=== PATIENT | male | born 1945 | race Caucasian/White ===

== ENCOUNTER 2016-12-22 15:43 | Inpatient (IN) | payer MEDICARE ==
[2016-12-22] MEDS ORDERED: DILTIAZEM 25 MG/5 ML VIAL IV ONE (15:59)
[2016-12-22 16:06] LABS: AUTOMATED BASOPHIL 0.9 % (0-2); AUTOMATED EOSINOPHIL 0.3 % (0-5); AUTOMATED LYMPH 18.3 % (17-44); AUTOMATED MONOCYTE 6.8 % (3-10); AUTOMATED NEUTROPHIL 73.7 % (45-76); MPV 8.9 fL (7.4-10.4)
[2016-12-22] MEDS ORDERED: Nitroglycerin D5W 50,000 MCG/250 ML IVBOT IV ONE (16:17)
--- NOTE | 2016-12-22 16:19 | EDPRACDOC ---
- General Information Stated Complaint: SYNCOPAL Time Seen by Provider: 12/22/16 15:48 Information Source: Patient, Nursing Agency Manager Mode Of Arrival: Ambulance Home Medications: Home Medications Bupropion HCl [Bupropion Xl] 150 mg PO BID 10/24/14 Cilostazol [Pletal] 100 mg PO BID 10/24/14 Losartan Potassium [Cozaar] 50 mg PO BID 10/24/14 MetFORMIN (Immediate Release) [GLUCOPHAGE Immed Release] 500 mg PO QHS 10/24/14 Metoprolol Succinate (XL) [Toprol Xl] 50 mg PO BID 12/22/16 Amlodipine [Norvasc] 10 mg PO HS #30 tab 12/25/16 Apixaban [Eliquis] 5 mg PO BID #60 tablet 12/25/16 Atorvastatin Calcium [Lipitor] 40 mg PO DAILY@1800 #30 tablet 12/25/16 Dronedarone Hydrochloride [Multaq] 400 mg PO BID #60 tablet 12/25/16 HydrALAZINE (Cardiovascular) [Apresoline] 25 mg PO TID #90 tablet 12/25/16 POTASSIUM CHLORIDE Tablet [K-DUR 20 mEq Tablet*] 20 meq PO TIDWM #30 tab.er.prt 12/25/16 Allergies/Adverse Reactions: Allergies Allergy/AdvReac Type Severity Reaction Status Date / Time NIELS Inhibitors Allergy Cough Verified 10/10/16 23:22 - History of Present Illness Onset: TODAY HPI: AT WORK, HAD SUDDEN ONSET OF LIGHTHEADEDNESS FOLLOWED BY SYNCOPE. SYNCOPE WAS ASSOCIATED WITH SEVERAL EPISODES OF MYOCLONIC JERKS. UNCONSCIOUS FOR A BRIEF PERIOD TIME FOR RETURNING TO NORMAL LEVEL CONSCIOUSNESS. WITH EMS TRANSPORT PATIENT INITIALLY HYPERTENSIVE. HE THEN HAD SEVERAL EPISODES WIDE COMPLEX TACHYCARDIA ASSOCIATED WITH THE LOSS OF CONSCIOUSNESS SOME MYOCLONIC JERKS. Duration: Minutes Presyncopal phase:: Reports: Palpitations Syncopal phase:: Reports: Seizure activity Postsyncopal phase:: Reports: Rapid recovery History of: Denies: Atrial Fibrillation, Aneurysm, Syncope, Seizures, Hypoglycemia Associated Signs/Symptoms: Reports: None ED Past Medical History - History Reviewed Yes Nurses notes reviewed and agree except as marked Information Unobtainable: Yes Unable to obtain information due to patient condition - Patient Medical History Cardiac History: Reports: Hypertension, Hypercholesterolemia Respiratory History: Reports: COPD, Emphysema Psychological History: Denies: Depression Systemic History: Reports: Diabetes Surgical History: Reports: Tonsillectomy/Adnoidectomy - Social Medical History Smoking Status: Heavy tobacco smoker (5 or more cigarettes/day or daily pipe/ cigar) EDM Review of Systems - Review of Systems ROS Negative Except as Marked: Yes All systems reviewed and were negative except as marked - Physical Exam Constitutional: Other (THIN MALE, PALE AND DIAPHORETIC) Oriented to: Person Last recorded Vital Signs: Last Vital Signs Temp Pulse 190 H 12/22/16 16:01 Resp 20 12/22/16 16:01 BP 106/81 12/22/16 16:01 Pulse Ox 98 12/22/16 16:01 Oxygen Pulse Oxygen Saturation 98 O2 Device Room Air Oxygen Flow Rate Fraction of Inspired Oxygen ( FIO2) - HEENT Head: Normal Oropharynx: Normal Neck: Normal. negative: Edema - Respiratory/Cardiovascular Respiratory: Normal - CTA Cardiovascular: Tachycardia, Irregular - GI Auscultation: Normal Palpation: Normal Tenderness: Non tender - Musculoskeletal Extremities: Cyanosis - Integumentary Skin: Cool, Clammy - Neurologic Memory Impaired: Unable to Test Motor Function: Other (MOVES ALL EXTREMITIES) Mood Description: Flat Thought: negative: Coherent - Results 12/25/16 04:30 12/25/16 04:30 WBC 9.4 xk/uL (3.8-10.8) 12/22/16 15:55 RBC 5.01 xM/uL (4.70-6.10) 12/22/16 15:55 Hgb 15.3 g/dL (14.0-18.0) 12/22/16 15:55 Hct 45.0 % (42-52) 12/22/16 15:55 MCV 90 fL (80-94) 12/22/16 15:55 MCH 30.6 pg (27-32) 12/22/16 15:55 MCHC 34.0 g/dl (33-36) 12/22/16 15:55 RDW 14.9 % (11.5-14.5) H 12/22/16 15:55 Plt Count 158 xk/uL (130-400) 12/22/16 15:55 MPV 8.9 fL (7.4-10.4) 12/22/16 15:55 Neut % (Auto) 73.7 % (45-76) 12/22/16 15:55 Lymph % (Auto) 18.3 % (17-44) 12/22/16 15:55 [place] % (Auto) 6.8 % (3-10) 12/22/16 15:55 Eos % (Auto) 0.3 % (0-5) 12/22/16 15:55 Baso % (Auto) 0.9 % (0-2) 12/22/16 15:55 Absolute Neuts (auto) 6.86 xk/uL (1.7-8.2) 12/22/16 15:55 Absolute Lymphs (auto) 1.69 xk/uL (0.65-4.75) 12/22/16 15:55 Lab Results 12/22/16 15:55 WBC 9.4 RBC 5.01 Hgb 15.3 Hct 45.0 MCV 90 MCH 30.6 MCHC 34.0 RDW 14.9 H Plt Count 158 MPV 8.9 Neut % (Auto) 73.7 Lymph % (Auto) 18.3 [place] % (Auto) 6.8 Eos % (Auto) 0.3 Baso % (Auto) 0.9 Absolute Neuts (auto) 6.86 Absolute Lymphs (auto) 1.69 - EKG EKG #1 EKG Time: 15:56 -: Yes EKG interpreted by me Rate: bpm: 194 Rhythm: Aflutter Block: None Hypertrophy: None ST: Ischemia, Nonsp Comparison: 10/24/14 (RATE AND RYTHYM CHANGE) EKG #2 EKG Time: 16:05 -: Yes EKG interpreted by me Rate: bpm: 81 [place]: Normal Rhythm: NSR, Afib Block: None Hypertrophy: None ST: Ischemia, Nonsp - Additional Information PATIENT PRESENTS TO THE EMERGENCY DEPARTMENT WITH TACHYCARDIA. EMS STRIPS DEMONSTRATE WIDE COMPLEX TACHYCARDIA. UPON ARRIVAL TO THE EMERGENCY DEPARTMENT PATIENT HAD A SYNCOPAL EPISODE ASSOCIATED MYOCLONIC JERKS. LASTED LESS THAN 1 MINUTE. NO CPR IN INITIATED. EKG DEMONSTRATED NARROW COMPLEX TACHYCARDIA. PATIENT WAS TREATED WITH DILTIAZEM IV BOLUS RATE WAS CONTROLLED. MENTAL STATUS HAS IMPROVED. HE IS NOW HYPERTENSIVE AND WILL BE STARTED ON NITROGLYCERIN DRIP FOR BLOOD PRESSURE CONTROL. ED Critical Care Note - Critical Care Note Total Time (mins): 35 Comments: Due to the presence of and / or the risk of deterioration, my attendance to this patient required critical care time, including assessment/reassessment, documentation, ordering and interpreting ancillary studies, discussion with ED staff and consultants,patient and family, and excludes time spent on separately billable procedures. - Departure Disposition: Admit IP To This Hospital Condition: Improved Final Diagnosis: Hypertensive emergency, Atrial flutter with rapid ventricular response, Syncope and collapse Decision to Admit Time: 18:06 Decision to admit date: 12/22/16 Decision to admit: from ED - Physician Consulted Hospitalist Time Called: 18:00 Provider Called: Juan Antonio Baum Time Match Maker Returned Call: 18:06
[2016-12-22 16:25] LABS: PARTIAL THROMB. TIME 25.9 SEC (22-35); PT-INR 1.1
[2016-12-22 16:30] LABS: BLOOD UREA NITROGEN 23 MG/DL (9-20); CALC CORRECTED 9.1 MG/DL (8.4-10.2); CALCULATED OSMOLALITY 283 MOs/Kg (270-290); CHLORIDE 105 mEq/L (98-107); GLUCOSE 141 mg/dL (70-99); SODIUM LEVEL 144 mEq/L (137-146); TOTAL PROTEIN 6.8 G/DL (6.3-8.2)
[2016-12-22] MEDS: Nitroglycerin D5W 50,000 MCG/250 ML IVBOT IV SCH (17:01)
--- NOTE | 2016-12-22 17:04 | DIRPT ---
CLINICAL DATA: Syncopal episode EXAM: PORTABLE CHEST 1 VIEW COMPARISON: Chest x-rays dated 10/24/2014 and 09/30/2011. FINDINGS: Heart size is normal. Overall cardiomediastinal silhouette is stable in size and configuration. Lungs are hyperexpanded suggesting COPD. Suspect associated chronic bronchitic changes centrally. Streaky opacities at the right lung base are slightly more prominent on today's study but remain most likely chronic scarring or atelectasis. No pleural effusion seen. No pneumothorax seen. Osseous and soft tissue structures about the chest are unremarkable. IMPRESSION: No convincing evidence of an acute intrathoracic abnormality. Lungs are hyperexpanded suggesting COPD. Suspect associated chronic bronchitic changes centrally. Probable chronic scarring/atelectasis at the lung bases, right greater than left, much less likely pneumonia if afebrile. Electronically Signed By: Humphrey Hunyh M.D. On: 12/22/2016 17:01
[2016-12-22] MEDS ORDERED: ACETAMINOPHEN 325 MG/TAB TABLET PO PRN (18:30)
[2016-12-22] MEDS ORDERED: GLUCAGON 1 MG VIAL SQ PRN (18:30)
[2016-12-22] MEDS ORDERED: Albuterol/Ipratropium Neb 3 ML NEB NEB PRN (18:30)
[2016-12-22] MEDS ORDERED: ONDANSETRON HCL 4 MG/2 ML VIAL IV PRN (18:30)
[2016-12-22] MEDS ORDERED: DEXTROSE 25 GM/50 ML PFS IV PRN (18:30)
[2016-12-22] MEDS ORDERED: GLUCOSE (ORAL GEL) 15 GM TUBE PO PRN (18:30)
--- NOTE | 2016-12-22 19:05 | HISTPHYS ---
- Chief Complaint Syncope - History of Present Illness This is a pleasant 71-year-old male who is highly functioning, has a history of diabetes and coronary artery disease who was being admitted to the [facility] due to new onset atrial fibrillation with syncope. The patient was in his usual state of health until this afternoon, when he had sudden onset of dizziness while ambulating, and had convulsive syncope that was witnessed. No bowel or bladder incontinence, no tongue biting. He denies any recent fevers, chills, nausea, vomiting, chest pain or shortness of breath. No sick contacts, no new medications. He has been compliant with his medications, but did not take his afternoon blood pressure medications since he was brought to the emergency department by EMS. Here in the emergency department, he was found to be in atrial flutter, with some hypotension. He was given bolus dose of diltiazem and started on drip, and he has been hypertensive since with rates controlled. He was also started on a nitrate drip to control his blood pressure. The hospitalist group was consulted for evaluation and management of the patient's new onset atrial fibrillation. - Medical History Cardiac History: Reports: Hypertension, Hypercholesterolemia. Denies: Atrial Fibrillation, Syncope Respiratory History: Reports: COPD, Emphysema Systemic History: Reports: Diabetes Neurological History: Denies: Seizures Psychological History: Denies: Depression - Surgical History Reports: Tonsillectomy/Adnoidectomy - Medictions/Allergies Allergies NIELS Inhibitors Allergy (Verified 10/10/16 23:22) Cough Home Medications Bupropion HCl [Bupropion Xl] 150 mg PO BID 10/24/14 Cilostazol [Pletal] 100 mg PO BID 10/24/14 Losartan Potassium [Cozaar] 50 mg PO BID 10/24/14 MetFORMIN (Immediate Release) [GLUCOPHAGE Immed Release] 500 mg PO DAILY Simvastatin [Zocor] 40 mg PO QHS 10/24/14 Metoprolol Succinate (XL) [Toprol Xl] 50 mg PO BID 12/22/16 - Social History Smoking Status: Heavy tobacco smoker (5 or more cigarettes/day or daily pipe/ cigar) - Review of Systems Yes All systems reviewed and were negative except as marked (And as mentioned in the history of present illness above.) - Physical Exam Vital Signs: Initial Vitals Temperature 98.3 F 12/22/16 15:50 Pulse Rate 55 L 12/22/16 15:50 Respiratory Rate 20 12/22/16 15:50 Blood Pressure 78/57 L 12/22/16 15:50 Pulse Oxygen Saturation 99 12/22/16 15:50 Constitutional: No apparent distress, Alert Oriented to: Time, Person, Place - HEENT Head: Normal (normocephalic,atraumatic, trachea midline) Eye: Normal (EOMI, Sclera white) Oropharynx: Normal (moist) Nose: No Symptoms Reported (without discharge or bleeding) Respiratory: Normal - CTA (Clear to auscultation bilaterally, no wheezing,rales or rhonchi. No use of accessory muscles) Cardiovascular: Normal (RRR, no murmurs, rubs or gallops) - GI Palpation: Normal (soft, non distended and nontender) - Musculoskeletal Extremities: Normal (normal tone, no cyanosis or edema) - Integumentary Skin: Normal (no rashes or lesions) - Neurologic Cranial Nerve: Normal (CN II-XII intact) Mood Description: Normal (Fully oriented and appropiate affect) - Focused CV Perfusion Exam Vital Signs: Last Vital Signs Temp 98.5 F 12/22/16 18:47 Pulse 69 12/22/16 18:51 Resp 18 12/22/16 18:51 BP 196/101 H 12/22/16 18:51 Pulse Ox 97 12/22/16 18:51 - Lab Results Laboratory Tests 12/22/16 12/22/16 12/22/16 15:55 15:55 15:55 WBC 9.4 Hgb 15.3 Hct 45.0 Plt Count 158 INR 1.1 Potassium 3.6 BUN 23 H Creatinine 1.20 Magnesium 1.80 AST 24 ALT 23 Troponin I 0.08 - Diagnostic Findings Chest x-ray was obtained in the emergency department, no acute changes, some evidence of chronic COPD. - Assessment (1) Atrial flutter with rapid ventricular response I48.92 - UNSPECIFIED ATRIAL FLUTTER Acute Patient denies a prior history of this. He will be admitted to the PCU with telemetry. He has already been started on diltiazem drip, and Cardiology will be formally consulted in the morning. He has a Fer score of 3, so I will start him on Eliquis anticoagulation tonight. I have also ordered a 2D echo. He sees Dr. Adler as an outpatient. (2) Hypertensive emergency I16.1 - HYPERTENSIVE EMERGENCY Acute Started on nitrate drip, will also continue the patient's home antihypertensive medications. (3) Syncope and collapse R55 - SYNCOPE AND COLLAPSE Acute Due to new onset atrial fibrillation. (4) DMII (diabetes mellitus, type 2) E11.9 - TYPE 2 DIABETES MELLITUS WITHOUT COMPLICATIONS Acute Continue home metformin, diabetic diet when eating and check hemoglobin A1c and urine microalbumin. Diabetic teaching has also been ordered. (5) CAD (coronary artery disease) I25.10 - ATHSCL HEART DISEASE OF [place] CORONARY ARTERY W/O ANG PCTRS Acute Patient tells me that he had cardiac catheterization a couple of years ago at [place], with 10% blockage found and no intervention. Plan was for medical therapy. Case Care Discussed with: Patient, Family, Nursing Staff Total Time: 42
[2016-12-22] MEDS ORDERED: Vaccine Screening Complete SCH (20:00)
[2016-12-22] MEDS ORDERED: Cilostazol 100 MG TAB PO SCH (21:00)
[2016-12-22] MEDS ORDERED: SIMVASTATIN 40 MG TAB PO SCH (21:00)
[2016-12-22] MEDS: BuPROPion 150 MG XL TAB PO SCH (21:22)
[2016-12-22] MEDS: APIXABAN 5 MG TABLET PO SCH (21:22)
[2016-12-22] MEDS: METOPROLOL (TOPROL-XL) 50 MG TAB PO SCH (21:22)
[2016-12-22] MEDS: REGULAR INSULIN 100 UNITS/ML - 3 ML VIAL SQ SCH (21:22)
[2016-12-22] MEDS: LOSARTAN POTASSIUM 50 MG TAB PO SCH (21:22)
[2016-12-23 04:22] LABS: MPV 9.3 fL (7.4-10.4)
[2016-12-23 04:41] LABS: BLOOD UREA NITROGEN 30 MG/DL (9-20); CALCIUM 8.8 MG/DL (8.4-10.2); CALCULATED OSMOLALITY 281 MOs/Kg (270-290); CHLORIDE 106 mEq/L (98-107); GLUCOSE 90 mg/dL (70-99); SODIUM LEVEL 143 mEq/L (137-146)
[2016-12-23] MEDS: REGULAR INSULIN 100 UNITS/ML - 3 ML VIAL SQ SCH ×4 (06:03→22:15)
[2016-12-23] MEDS: APIXABAN 5 MG TABLET PO SCH ×2 (08:24→20:18)
[2016-12-23] MEDS: MetFORMIN 500 MG IMMED RELEASE TAB PO SCH (08:24)
[2016-12-23] MEDS: LOSARTAN POTASSIUM 50 MG TAB PO SCH (08:25)
[2016-12-23] MEDS: METOPROLOL (TOPROL-XL) 50 MG TAB PO SCH ×2 (08:25→20:18)
[2016-12-23] MEDS: BuPROPion 150 MG XL TAB PO SCH ×2 (08:25→20:18)
[2016-12-23] MEDS: Nitroglycerin D5W 50,000 MCG/250 ML IVBOT IV SCH ×2 (09:51→09:56)
--- NOTE | 2016-12-23 10:17 | PCM.CARDCO ---
Consultation Date: 12/23/16 Requesting Physician: Christin Reilly [employer]: Femi Jama Consult Reason: Syncope, Other (Paroxysmal atrial fibrillation) - History of Present Illness Is a patient seen in my practice previously with a history of hypertension hyperlipidemia right hemisphere TIA type 2 diabetes angina pectoris and carotid atherosclerosis with for previous right carotid endarterectomy. He underwent coronary arteriography which showed mild nonobstructive CAD in 2013. He was last seen November 2015 at that time was doing well and had no documentation of atrial arrhythmias. Other problems include peripheral vascular disease and previous syncope. Additionally tells me that he thinks he had a stroke at the time his CEA and he has no recall of events yesterday. Today no complaints of headache shortness of breath chest pain or palpitation. Relates he has routine doctor's visits and he has never had a problem with his blood pressure out of control. He has no history of seizure disorder. He was aware is in atrial fibrillation tells me he has had episodes like this in the past although he has never been diagnosed. Chief Complaint: Syncope - Past Medical and Surgical History Cardiac History: Reports: Hypertension, Cardiac Catheterization (Mild nonobstructive CAD a coronary arteriography 11/06/2014), Hypercholesterolemia. Denies: Atrial Fibrillation, Syncope Respiratory History: Reports: COPD, Emphysema GI/ History: Reports: Gastroesophageal Reflux Systemic History: Reports: Diabetes. Denies: Cancer Psychological History: Denies: Depression Neurological History: Reports: Cerebrovascular Accident (2009). Denies: Seizures Past Surgical History: Reports: Cardiac Catheterization, Hernia Surgery (2004), Tonsillectomy/Adnoidectomy, Other (Carotid endarterectomy right side 2008) Allergies NIELS Inhibitors Allergy (Verified 10/10/16 23:22) Cough Home Medications Bupropion HCl [Bupropion Xl] 150 mg PO BID 10/24/14 Cilostazol [Pletal] 100 mg PO BID 10/24/14 Losartan Potassium [Cozaar] 50 mg PO BID 10/24/14 MetFORMIN (Immediate Release) [GLUCOPHAGE Immed Release] 500 mg PO QHS 10/24/14 Simvastatin [Zocor] 40 mg PO QHS 10/24/14 Metoprolol Succinate (XL) [Toprol Xl] 50 mg PO BID 12/22/16 - Social History Travel Outside of [place] in the Last 3 Months?: No Smoking Status: Heavy tobacco smoker (5 or more cigarettes/day or daily pipe/ cigar) - Family History Reports: Cancer (Mother in her 40s). Denies: Hypertension, Diabetes, Stroke, Cardiac Disorders - Review of Systems Yes Limited due to inability of parents to provide information (He has no recall of the events from yesterday) - Cardiovascular Palpitations - Physical Exam Constitutional: No apparent distress, Other (He has facial asymmetry is speech is slurred and he has a very poor historian) Oriented to: Time, Person, Place Exam: Last Vital Signs Temp 97.4 F L 12/23/16 08:04 Pulse 61 12/23/16 08:04 Resp 16 12/23/16 08:04 BP 139/82 12/23/16 08:04 Pulse Ox 98 12/23/16 08:04 Intake & Output 12/22/16 12/23/16 12/23/16 23:59 07:59 15:59 Intake Total 15 Output Total 175 Balance 15 -175 Patient's weight 138 lb 12.8 oz - HEENT Head: Normal (He has a soft right carotid bruit systolic no bruit on the left no neck vein distention or thyromegaly) Eye: Normal (EOMI, Sclera white) Oropharynx: Normal (moist) Nose: No Symptoms Reported (without discharge or bleeding) - Respiratory/Cardiovascular Respiratory: Normal - CTA (Clear to auscultation bilaterally, no wheezing,rales or rhonchi. No use of accessory muscles) Cardiovascular: Systolic murmur (1-2 of 6 systolic ejection murmur located the aortic area). negative: Normal (S1-S2 was normal), Gallop/S3, Gallop/S4 - GI Palpation: Normal (soft, non distended and nontender) Tenderness: Non tender - Musculoskeletal Back: Normal Extremities: Normal (normal tone, no cyanosis or edema), Femoral Pulse, Pedal Pulse. negative: Calf Tenderness, Clubbing, Cyanosis, Edema, Pedal Edema, Radial Pulse - Integumentary Skin: Normal (no rashes or lesions). negative: Diaphoretic, Pale, Mottling, Jaundice - Neurologic Mood Description: Normal (Fully oriented and appropiate affect) - Lab Results Selected Entries 12/22/16 15:50 Blood Pressure 78/57 L Laboratory Tests 12/22/16 12/22/16 12/22/16 15:55 20:00 23:15 WBC Hgb Potassium Creatinine Estimated GFR (MDRD) Troponin I 0.08 0.11 0.11 12/23/16 12/23/16 03:40 03:40 WBC 8.3 Hgb 12.7 L D Potassium 3.9 Creatinine 1.30 H Estimated GFR (MDRD) 54 L Troponin I He has converted to sinus rhythm Echocardiogram shows normal ejection fraction moderate LVH normal left atrial size - Assessment/Plan (1) Atrial fibrillation and flutter I48.91 - UNSPECIFIED ATRIAL FIBRILLATION; I48.92 - UNSPECIFIED ATRIAL FLUTTER Acute Comment: ED strips I reviewed her consistent with atrial fibrillation rapid rate and atypical left atrial flutter. His chads 2 Vasc score equals 6 and he should be anticoagulated especially in view of his previous documented TIA. He has a diagnosis of previous syncope in the past his presentation is very atypical with brief seizure activity which may be related to cerebral vascular disease with previous carotid endarterectomy and TIA. He was hypotensive on presentation. I would continue beta-manju his anticoagulant and await echocardiogram, his ejection fraction is not severely reduced at place him on anti rhythmic therapy with Multaq. If he has symptomatic clinical recurrence he could be considered for EP ablation. Regardless he should remain long-term anticoagulated. I am concerned that he had a coincident neurologic event and after discussion with his attending he will undergo an MRI of the brain. (2) Hypertensive heart disease I11.9 - HYPERTENSIVE HEART DISEASE WITHOUT HEART FAILURE Chronic Present on Admission: Yes without heart failure I11.9 - Hypertensive heart disease without heart failure Comment: Poorly controlled still on IV nitroglycerin, I will switch him to potent ARB and add oral hydralazine. I (3) CAD (coronary artery disease) I25.10 - ATHSCL HEART DISEASE OF [place] CORONARY ARTERY W/O ANG PCTRS Chronic Present on Admission: Yes [place] artery [place] heart Comment: He has minimal troponin elevation no indication of acute coronary syndrome and at this time I do not do not think he requires an ischemia evaluation. Continue his anticoagulant without aspirin beta-manju and a statin. (4) Syncope and collapse R55 - SYNCOPE AND COLLAPSE Acute Present on Admission: Yes Comment: He has had a previous episode has known cerebral vascular disease in his presentation of brief ictal activity is uncommon and may be a reflection of underlying cerebral vascular disease. With committing him to anticoagulant treatment I would check an MRI of the head. Case Care Discussed with: Patient, Nursing Staff (And attending physician by phone conference)
--- NOTE | 2016-12-23 13:34 | CAPUECHO ---
INDICATION: ATRIAL FIBRILLATION HEIGHT: 185.4 cm (6 ft 1.0 in) WEIGHT: 62.6 kg (138.0 lbs) BP: 160/77 BSA: 1.447200 m MEASUREMENTS 2D LVOT Diam: 2.0 cm EF Biplane: 59.82 % LAESV MOD A4C: 21.9 ml LAESV MOD A2C: 37.1 ml LAESV Index (A-L): 17.76 ml/m M-MODE IVSd: 1.4 cm LVIDd: 4.9 cm LVPWd: 1.2 cm LVIDs: 3.2 cm EF(Teich): 64 % Ao Diam: 2.4 cm DOPPLER MV E Esdras: 0.84 m/s MV A Esdras: 1.07 m/s MV PHT: 99.61 ms MVA By PHT: 2.21 cm LVOT Vmax: 1.12 m/s AV Vmax: 1.20 m/s STEPHEN Vmax, Pt: 2.98 cm TR Vmax: 1.39 m/s TR maxP mmHg RVSP: 17.72 mmHg FINDINGS ------- Procedure:2D images, m-mode, color and spectral Doppler were obtained and reviewed. ECG rhythm:Sinus rhythm. Study quality:This was a technically difficult study with suboptimal views. Parasternal sax TDS. Left Ventricle:The left ventricular size is normal. There is moderate concentric left ventricular hypertrophy. There is normal global left ventricular contractility. Overall left ventricular sys tolic function is normal with, an EF between 60 - 65 %. The diastolic filling pattern indicates im paired relaxation. Left ventricle measured at subcostal sax. No regional wall motion abnormalities were noted. Right Ventricle:The right ventricle is normal in size and function. Left Atrium:The left atrium is normal in size. Right Atrium:The right atrium is normal in size and function. Aortic Valve:The aortic valve was not well visualized. There is no evidence of aortic regurgitatio n. There is no evidence of aortic stenosis. Mitral Valve:The mitral valve leaflets are mildly thickened. Mild mitral annular calcification pre sent. There is trace mitral regurgitation. Tricuspid Valve:The tricuspid valve appears structurally normal. Trace tricuspid regurgitation pre sent. Unable to estimate RVSP due to inadequate TR jet spectral doppler profile. Pulmonic Valve:The pulmonic valve was not well visualized. Aorta:The aortic root, ascending aorta and aortic arch not well visualized. IVC:The inferior vena cava is moderately dilated. Pericardium:There is a trivial pericardial effusion present. CONCLUSIONS 1. There is moderate concentric left ventricular hypertrophy. 2. Overall left ventricular systolic function is normal with, an EF between 60 - 65 %. 3. The left atrium is normal in size. 4. The inferior vena cava is moderately dilated. Electronically Signed By: Femi Jama MD, FACC Electronically Signed On: 13:33:06
[2016-12-23] MEDS ORDERED: AMLODIPINE 10 MG TAB PO SCH (14:00)
[2016-12-23] MEDS: hydrALAZINE 20 MG/ML VIAL IV SCH ×2 (14:18→19:57)
[2016-12-23] MEDS ORDERED: Medication Hold Instructions SCH (14:40)
--- NOTE | 2016-12-23 16:56 | DIRPT ---
CLINICAL DATA: Confusion. Patient presented with stroke-like symptoms yesterday. EXAM: CT HEAD WITHOUT CONTRAST TECHNIQUE: Contiguous axial images were obtained from the base of the skull through the vertex without intravenous contrast. COMPARISON: 10/10/2016 FINDINGS: Since the prior study, areas of hypoattenuation have become apparent above the left caudate nucleus head along the superior aspect of the left base a ganglia extending to the periventricular white matter of the left centrum semiovale. Several of these areas are well-defined that are likely chronic but new lacune or infarcts. The area of hypoattenuation in the periventricular white matter, which measures 13 mm in greatest dimension, may reflect a subacute infarct. There is a chronic within are infarct of the left caudate nucleus head. There are several small additional bilateral basal ganglia lacune infarcts which are chronic. The ventricles are normal in configuration. There is ventricular and sulcal enlargement reflecting mild atrophy. No hydrocephalus. 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 Scattered areas of subcortical white matter hypoattenuation noted consistent with mild chronic microvascular ischemic change. There are no parenchymal masses or mass effect. There are no extra-axial masses or abnormal fluid collections. There is no intracranial hemorrhage. The visualized sinuses and mastoid air cells are clear. IMPRESSION: 1. Possible subacute infarct involving the periventricular white matter of the left centrum semiovale, extending from the superior aspect of the left basal ganglia. 2. Several additional lacune infarcts in the left base a ganglia are new since the prior study but appear chronic. 3. No other evidence of infarct or acute abnormality. 4. Multiple old lacune infarcts are noted bilaterally. There is an old right parietal lobe infarct. 5. Mild generalized atrophy. Mild chronic microvascular ischemic change. Electronically Signed By: Abe Pérez M.D. On: 12/23/2016 16:53
--- NOTE | 2016-12-23 17:52 | GENMEDPROG ---
Subjective Note: 71-year-old gentleman admitted to our facility with syncope. He was seen in consultation by Dr. Jama. He has had several issues which could lead to syncope: Atrial fibrillation, possible seizures, possible strokes. I have discussed the case with Dr. Jama were going to obtain a CT scan of the patient 's head to further evaluate if he has had a recent seen as able to. Notes Reviewed: Yes: Events from last night noted and discussed with Clinical Staff Current Medication List: Reviewed Currently: Denies: Wheezing, LEON, Nausea and Vomiting, Abdominal Pain, Fever/ Chills DVT Prophylaxis: Yes - Physical Examination Vital Signs and I&O: Last Vital Signs Temp 98.1 F 12/23/16 15:34 Pulse 71 12/23/16 17:00 Resp 18 12/23/16 15:34 BP 151/67 12/23/16 17:00 Pulse Ox 100 12/23/16 17:00 Oxygen Pulse Oxygen Saturation 100 O2 Device Nasal Cannula Oxygen Flow Rate 2 Fraction of Inspired Oxygen ( FIO2) Intake & Output 12/20/16 12/21/16 12/22/16 12/23/16 23:59 23:59 23:59 23:59 Intake Total 15 960 Output Total 575 Balance 15 385 Patient's weight 62.959 kg General: Alert, Oriented x3, No acute distress, Well appearing, Well nourished HEENT: Normal (Normocephalic, atraumatic;EOMI.Sclera white, Nares patent, without discharge or bleeding. No oropharyngeal lesions or erythema. Mucous membranes are dry.) Respiratory: Normal - CTA (Clear to auscultation bilaterally, no wheezing,rales or rhonchi. No use of accessory muscles) Cardiovascular: Regular rate and rhythm (No bradycardia or tachycardia), Normal S1, No Gallops,Rubs/Murmurs, Normal S2, Good Pedal Pulses (DP pulses 2+ bilaterally) GI: Normal bowel sounds (normal active sounds), Soft (non-distended), Non tender , No hepatospenomegaly, No masses Extremities/Musculoskeletal: Normal pulses (DP pulses 2+ bilaterally) Skin: Warm,Dry and Intact, No rashes, No significant lesion Neurological: Strength at 5/5 X4 ext (Motor 5/5 throughout.), Normal tone, Cranial nerves 3-12 NL ( 2-12 grossly intact.) Lab/DI/Studies Reviewed: Laboratory Results - last 24 hr 12/22/16 12/22/16 12/22/16 15:55 20:00 21:00 WBC RBC Hgb Hct MCV MCH MCHC RDW Plt Count MPV Sodium Potassium Chloride Carbon Dioxide Anion Gap BUN Creatinine Estimated GFR (MDRD) Glucose POC Capillary Glucose 146 H Hemoglobin A1c 6.2 H Calculated Osmolality Calcium Troponin I 0.11 12/22/16 12/23/16 12/23/16 23:15 03:40 03:40 WBC 8.3 RBC 4.19 L Hgb 12.7 L D Hct 37.5 L MCV 90 MCH 30.4 MCHC 33.9 RDW 14.9 H Plt Count 160 MPV 9.3 Sodium 143 Potassium 3.9 Chloride 106 Carbon Dioxide 30 Anion Gap 11 BUN 30 H Creatinine 1.30 H Estimated GFR (MDRD) 54 L Glucose 90 POC Capillary Glucose Hemoglobin A1c Calculated Osmolality 281 Calcium 8.8 Troponin I 0.11 12/23/16 12/23/16 12/23/16 04:07 11:01 15:36 WBC RBC Hgb Hct MCV MCH MCHC RDW Plt Count MPV Sodium Potassium Chloride Carbon Dioxide Anion Gap BUN Creatinine Estimated GFR (MDRD) Glucose POC Capillary Glucose 100 H 136 H 110 H Hemoglobin A1c Calculated Osmolality Calcium Troponin I - Assessment (1) Syncope and collapse Acute R55 - SYNCOPE AND COLLAPSE Comment/Plan: Concerned about possible CVA will check CT scan of the head. Patient has had some concerning symptoms including possible seizures possible TIAs and recent new onset atrial fibrillation. (2) Atrial flutter with rapid ventricular response Acute I48.92 - UNSPECIFIED ATRIAL FLUTTER Comment/Plan: Continue anticoagulation. Appreciate Dr. Jama help. (3) DMII (diabetes mellitus, type 2) Acute E11.9 - TYPE 2 DIABETES MELLITUS WITHOUT COMPLICATIONS Qualifiers: Diabetes mellitus complication status: with neurologic complications Diabetes mellitus complication detail: with other neurological complication Diabetes mellitus care home insulin use: without care home use Qualified Code( s): E11.49 - Type 2 diabetes mellitus with other diabetic neurological complication Comment/Plan: Continue home metformin, diabetic diet when eating and check hemoglobin A1c and urine microalbumin. Diabetic teaching has also been ordered. Blood glucoses acceptable (4) Hypertensive emergency Acute I16.1 - HYPERTENSIVE EMERGENCY Comment/Plan: Monitor blood pressures closely try to wean nitroglycerin drip to off given possibility of recent stroke. (5) CAD (coronary artery disease) Chronic I25.10 - ATHSCL HEART DISEASE OF [place] CORONARY ARTERY W/O ANG PCTRS Qualifiers: Coronary Disease-Associated Artery/Lesion type: [place] artery [place] vs. transplanted heart: [place] heart Comment/Plan: Patient tells me that he had cardiac catheterization a couple of years ago at [facility], with 10% blockage found and no intervention. Plan was for medical therapy. - Plan Check CT scan of the head tonight. Disposition Plan: Hopefully home Case Care Discussed with: Patient, Consultants, Nursing Staff Education/Counseling Given To: Patient Education/Counseling Given Regarding: Diagnosis, Treatment, Prognosis, Follow Up , Disposition Plan Total Time: 45 minutes Critical Care: No Couseling Time (>50% in counseling/coordination): No
[2016-12-23] MEDS ORDERED: hydrALAZINE 20 MG/ML VIAL IV SCH (18:00)
[2016-12-23] MEDS: AMLODIPINE 10 MG TAB PO SCH (20:18)
[2016-12-23] MEDS: hydrALAZINE 25 MG TAB PO SCH (20:18)
[2016-12-23] MEDS: DRONEDARONE 400 MG TAB PO SCH (20:18)
[2016-12-23] MEDS ORDERED: hydrALAZINE 10 MG TAB PO SCH (21:00)
[2016-12-24] MEDS: hydrALAZINE 20 MG/ML VIAL IV SCH ×2 (00:27→04:49)
[2016-12-24] MEDS: Nitroglycerin D5W 50,000 MCG/250 ML IVBOT IV SCH ×2 (02:05→12:14)
[2016-12-24 04:04] LABS: MPV 9.2 fL (7.4-10.4)
[2016-12-24 04:11] VITALS: BMI 18.5
[2016-12-24 04:12] LABS: BLOOD UREA NITROGEN 23 MG/DL (9-20); CALCIUM 8.7 MG/DL (8.4-10.2); CALCULATED OSMOLALITY 274 MOs/Kg (270-290); CHLORIDE 106 mEq/L (98-107); GLUCOSE 126 mg/dL (70-99); SODIUM LEVEL 139 mEq/L (137-146)
[2016-12-24] MEDS: hydrALAZINE 25 MG TAB PO SCH ×3 (04:49→20:11)
[2016-12-24] MEDS: REGULAR INSULIN 100 UNITS/ML - 3 ML VIAL SQ SCH ×4 (06:23→20:17)
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
[2016-12-24] MEDS: MetFORMIN 500 MG IMMED RELEASE TAB PO SCH (09:30)
[2016-12-24] MEDS: APIXABAN 5 MG TABLET PO SCH ×2 (09:30→20:11)
[2016-12-24] MEDS: DRONEDARONE 400 MG TAB PO SCH ×2 (09:30→20:11)
[2016-12-24] MEDS: METOPROLOL (TOPROL-XL) 50 MG TAB PO SCH ×2 (09:31→20:11)
[2016-12-24] MEDS: BuPROPion 150 MG XL TAB PO SCH ×2 (09:31→20:11)
[2016-12-24 11:50] LABS: hTSH 1.3 uIU/mL (0.5-4.67)
[2016-12-24 14:02] LABS: CRP-QUANTITATIVE 12.1 mg/L (<10.0)
--- NOTE | 2016-12-24 17:01 | GENMEDPROG ---
Subjective Note: Patient's speech has improved today he has less garbled. CT scan did reveal possible acute CVA. Notes Reviewed: Yes: Events from last night noted and discussed with Clinical Staff Current Medication List: Reviewed Currently: Denies: Wheezing, LEON, Nausea and Vomiting, Abdominal Pain, Fever/ Chills DVT Prophylaxis: Yes - Physical Examination Vital Signs and I&O: Last Vital Signs Temp 100.1 F 12/24/16 16:00 Pulse 64 12/24/16 16:00 Resp 17 12/24/16 16:00 BP 154/59 L 12/24/16 16:00 Pulse Ox 98 12/24/16 16:00 Oxygen Pulse Oxygen Saturation 98 O2 Device Nasal Cannula Oxygen Flow Rate 2 Fraction of Inspired Oxygen ( FIO2) Intake & Output 12/21/16 12/22/16 12/23/16 12/24/16 23:59 23:59 23:59 23:59 Intake Total 15 1200 1001 Output Total 725 250 Balance 15 475 751 Patient's weight 62.959 kg 63.594 kg General: Alert, Oriented x3, No acute distress, Well appearing, Well nourished HEENT: Normal (Normocephalic, atraumatic;EOMI.Sclera white, Nares patent, without discharge or bleeding. No oropharyngeal lesions or erythema. Mucous membranes are dry.) Neck: Non-tender, Full range of motion, Normal Trachea alignment, Normal inspection (No cervical lymphadenopathy. No supraclavicular lymphadenopathy.), No Masses palpable, Supple Respiratory: Normal - CTA (Clear to auscultation bilaterally, no wheezing,rales or rhonchi. No use of accessory muscles) Cardiovascular: Regular rate and rhythm (No bradycardia or tachycardia), Normal S1, No Gallops,Rubs/Murmurs, Normal S2, Good Pedal Pulses (DP pulses 2+ bilaterally) GI: Normal bowel sounds (normal active sounds), Soft (non-distended), Non tender , No hepatospenomegaly, No masses Extremities/Musculoskeletal: Normal pulses (DP pulses 2+ bilaterally) Skin: Warm,Dry and Intact, No rashes, No significant lesion Neurological: Strength at 5/5 X4 ext (Motor 5/5 throughout.), Normal tone, Cranial nerves 3-12 NL ( 2-12 grossly intact.) Lab/DI/Studies Reviewed: Abnormal Lab Results 12/23/16 12/24/16 12/24/16 20:57 03:40 03:40 WBC 11.3 H RBC 4.67 L Hct 41.9 L RDW 14.8 H BUN 23 H Glucose 126 H POC Capillary Glucose 123 H C-Reactive Prot, Quant 12/24/16 12/24/16 12/24/16 03:40 04:18 12:20 WBC RBC Hct RDW BUN Glucose POC Capillary Glucose 125 H 116 H C-Reactive Prot, Quant 12.1 H 12/24/16 15:41 WBC RBC Hct RDW BUN Glucose POC Capillary Glucose 134 H C-Reactive Prot, Quant - Assessment (1) Basal ganglia infarction Acute I63.9 - CEREBRAL INFARCTION, UNSPECIFIED Comment/Plan: Stroke protocol initiated. Continue present management. (2) Syncope and collapse Acute R55 - SYNCOPE AND COLLAPSE Comment/Plan: Syncope likely due to acute stroke. Concern also about possible seizures. Will consult Neurology. (3) Atrial flutter with rapid ventricular response Acute I48.92 - UNSPECIFIED ATRIAL FLUTTER Comment/Plan: Continue anticoagulation. Appreciate Dr. Jama help. (4) DMII (diabetes mellitus, type 2) Acute E11.9 - TYPE 2 DIABETES MELLITUS WITHOUT COMPLICATIONS Qualifiers: Diabetes mellitus complication status: with neurologic complications Diabetes mellitus complication detail: with other neurological complication Diabetes mellitus halfway insulin use: without supervisor long goods use Qualified Code( s): E11.49 - Type 2 diabetes mellitus with other diabetic neurological complication Comment/Plan: Continue home metformin, diabetic diet when eating and check hemoglobin A1c and urine microalbumin. Diabetic teaching has also been ordered. Blood glucoses acceptable (5) Hypertensive emergency Acute I16.1 - HYPERTENSIVE EMERGENCY Comment/Plan: Wean nitroglycerin to off (6) CAD (coronary artery disease) Chronic I25.10 - ATHSCL HEART DISEASE OF [place] CORONARY ARTERY W/O ANG PCTRS Qualifiers: Coronary Disease-Associated Artery/Lesion type: [place] artery [place] vs. transplanted heart: [place] heart Comment/Plan: Patient tells me that he had cardiac catheterization a couple of years ago at [facility], with 10% blockage found and no intervention. Plan was for medical therapy. - Plan Neurology consultation pending Disposition Plan: Hopefully home Case Care Discussed with: Patient, Consultants, Nursing Staff Education/Counseling Given To: Patient Education/Counseling Given Regarding: Diagnosis, Treatment, Prognosis, Disposition Plan Total Time: 45 minutes Critical Care: No Couseling Time (>50% in counseling/coordination): No
[2016-12-24] MEDS ORDERED: ATORVASTATIN 40 MG TAB PO SCH (18:00)
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
[2016-12-24] MEDS: AMLODIPINE 10 MG TAB PO SCH (20:11)
[2016-12-25] MEDS: Nitroglycerin D5W 50,000 MCG/250 ML IVBOT IV SCH ×2 (04:45→14:07)
[2016-12-25] MEDS: hydrALAZINE 25 MG TAB PO SCH ×2 (04:45→14:07)
[2016-12-25 05:15] LABS: MPV 9.7 fL (7.4-10.4)
[2016-12-25 05:16] LABS: BLOOD UREA NITROGEN 30 MG/DL (9-20); CALCIUM 8.7 MG/DL (8.4-10.2); CALCULATED OSMOLALITY 270 MOs/Kg (270-290); CHLORIDE 104 mEq/L (98-107); GLUCOSE 102 mg/dL (70-99); LDL (calc.) 33.8 MG/DL (<100); SODIUM LEVEL 137 mEq/L (137-146); VLDL (calc.) 18.2 MG/DL (5-40)
[2016-12-25] MEDS: REGULAR INSULIN 100 UNITS/ML - 3 ML VIAL SQ SCH ×2 (06:11→11:01)
--- NOTE | 2016-12-25 07:42 | PCM.CARD ---
- Subjective Reason for visit: Atrial fibrillation Current Assessment: No New Symptoms. negative: Chest Pain, Orthopnea, Palpitations, Syncope Vital Signs: Last Vital Signs Temp 98.7 F 12/25/16 03:55 Pulse 60 12/25/16 06:00 Resp 18 12/24/16 20:00 BP 156/69 12/25/16 06:00 Pulse Ox 99 12/25/16 03:55 Respiratory: Normal - CTA, [place] Jugular Vein Distention: None Pulse Rhythm: Regular EKG Rhythm: Sinus Rhythm Heart Sounds: S1 & S2. negative: S3, S4, Murmur (No edema) Lab/DI Results Reviewed: Laboratory Tests 12/25/16 12/25/16 04:30 04:30 Hgb 12.4 L D Hct 36.4 L Potassium 3.3 L Estimated GFR (MDRD) > 60 LDL Cholesterol, Calc 33.8 - Assessment/Plan (1) Atrial fibrillation and flutter Acute I48.91 - UNSPECIFIED ATRIAL FIBRILLATION; I48.92 - UNSPECIFIED ATRIAL FLUTTER Present on Admission: Yes Comment/Plan: Improved remains in sinus rhythm will continue his current suppressant treatment with Multaq beta-manju and anticoagulant (2) Hypertensive heart disease Chronic I11.9 - HYPERTENSIVE HEART DISEASE WITHOUT HEART FAILURE Present on Admission: Yes without heart failure I11.9 - Hypertensive heart disease without heart failure Comment/Plan: Improved continue current treatment adding hydralazine (3) CAD (coronary artery disease) Chronic I25.10 - ATHSCL HEART DISEASE OF [place] CORONARY ARTERY W/O ANG PCTRS Present on Admission: Yes [place] artery [place] heart Comment/Plan: Stable continue current treatment involving anticoagulant beta-manju and statin (4) Syncope and collapse Acute R55 - SYNCOPE AND COLLAPSE Present on Admission: Yes Comment/Plan: Stable no recurrence in sinus rhythm
[2016-12-25] MEDS: APIXABAN 5 MG TABLET PO SCH (09:34)
[2016-12-25] MEDS: DRONEDARONE 400 MG TAB PO SCH (09:35)
[2016-12-25] MEDS: BuPROPion 150 MG XL TAB PO SCH (09:35)
[2016-12-25] MEDS: MetFORMIN 500 MG IMMED RELEASE TAB PO SCH (09:35)
[2016-12-25] MEDS: METOPROLOL (TOPROL-XL) 50 MG TAB PO SCH (09:35)
[2016-12-25] MEDS: POTASSIUM CHLORIDE 20 MEQ TAB PO SCH (10:49)
[2016-12-25 10:58] VITALS: BP 155/69; PULSE 55; TEMP 98.4
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
[2016-12-25 11:38] VITALS: TEMP 98.4
--- NOTE | 2016-12-25 11:43 | CAPUEKG ---
[place], [place] Test Date: 2016-12-24 Pat Name: WILEY TOMPKINS Department: Room: 426 Gender: Male [employer]: KATHERINE : 1945 Requested By: Order Number: Reading MD: Femi Jama MD Measurements Intervals [place] Rate: 77 P: [place]: QRS: -54 QRSD: 92 T: 151 QT: 398 QTc: 450 Interpretive Statements Accelerated Junctional rhythm with occasional premature ventricular complexes Left axis deviation Possible Right ventricular hypertrophy ST abnormality and T wave inversion in Inferolateral leads Borderline Prolonged QT Electronically Signed On 12-25-16 11:43:15 EST by Femi Jama MD <[email or web address]> [id number]
[2016-12-25] MEDS ORDERED: VARIBAR THIN 40% BARIUM 250 ML ONE (14:35)
[2016-12-25] MEDS ORDERED: VARIBAR HONEY 40% BARIUM 250 ML ONE (14:35)
[2016-12-25] MEDS ORDERED: VARIBAR NECTAR 40% BARIUM 240 ML ONE (14:35)
--- NOTE | 2016-12-27 01:13 | CAPUEEG ---
The patient brought to the emergency room for syncopal event associated with myoclonic jerks. DESCRIPTION: The background rhythm in this record consists of fairly well organized and moderately well-developed waves of 10 per second, bilaterally synchronous and symmetrical. ( ) intermixed with diffuse 6-7 per second rhythms. Hyperventilation was not performed. Photic stimulation produced fair driving response without any significant asymmetry. Drowsiness and light sleep were achieved. Only symmetrical patterns were noted. IMPRESSION: This record demonstrates mild diffuse slow wave abnormality, getting slight generalized neurophysiologic disturbance. No clear epileptiform discharges are noted. No definite evidence was seen for a seizure disorder. [id number]
== END 2016-12-25 15:41 | disposition home health service (06) | DRG 65 ==
LOC: ED 15:43 → PCU 18:30
PROVIDERS: ADMIT Internal Medicine; ATTEND Hospitalist
DX: I63.9 Cerebral infarction, unspecified (principal); I48.92 Unspecified atrial flutter; E11.49 Type 2 diabetes mellitus with other diabetic neurological complication; I11.9 Hypertensive heart disease without heart failure; I16.1 Hypertensive emergency; R53.1 Weakness; I25.10 Atherosclerotic heart disease of native coronary artery without angina pectoris; Z86.73 Personal history of transient ischemic attack (TIA), and cerebral infarction without residual deficits; E78.5 Hyperlipidemia, unspecified; E78.00 Pure hypercholesterolemia, unspecified; J44.9 Chronic obstructive pulmonary disease, unspecified; Z88.8 Allergy status to other drugs, medicaments and biological substances; Z79.899 Other long term (current) drug therapy; F17.210 Nicotine dependence, cigarettes, uncomplicated; K21.9 Gastro-esophageal reflux disease without esophagitis; I48.91 Unspecified atrial fibrillation
CPT/HCPCS: 36415; 51798; 70450; 71010; 80048; 80053; 80061; 82043; 82962; 83036; 83090; 83735; 84443; 84484; 85025; 85027; 85610; 85651; 85730; 86038; 86140; 86592; 93005; 93306; 95819; 96365; 96366; 96375; 97162; 97165; 99285; G0237; J0360; J3490